=== PATIENT | female | born 1975 | race Caucasian/White ===

== ENCOUNTER 2023-04-07 18:32 | Emergency (ER) | payer OTHER ==
[~2023-04-07] VITALS: Ht 165.1 cm; Wt 108.4 kg
[2023-04-07 18:43] VITALS: BP 117/74
--- NOTE | 2023-04-07 18:47 | NUR ---
pt ambulatory to mariel
--- NOTE | 2023-04-07 19:10 | NUR ---
Patient resting, A/Ox4, chest rise and fall symmetrical, no s/s of distress.
--- NOTE | 2023-04-07 19:29 | NUR ---
Patient discharged with v/s stable. Written and verbal after care instructions given and explained. Patient verbalized understanding. Ambulatory with steady gait. All questions addressed prior to discharge. Advised to follow up with PMD.
[2023-04-07 19:30] VITALS: BP 122/85
== END 2023-04-07 19:34 | disposition home or self-care (01) ==
LOC: MED 18:32
DX: T16.2XXA Foreign body in left ear, initial encounter (principal); H60.93 Unspecified otitis externa, bilateral; X58.XXXA Exposure to other specified factors, initial encounter; Y92.89 Other specified places as the place of occurrence of the external cause; Y93.89 Activity, other specified; Y99.8 Other external cause status
CPT/HCPCS: 69200; 99284

== ENCOUNTER 2023-09-26 12:33 | Emergency (ER) | payer MEDICAID, OTHER ==
[~2023-09-26] VITALS: Ht 152.4 cm; Wt 106.6 kg
[2023-09-26 12:44] VITALS: BP 107/72; PULSE 78; RESP 18; TEMP 98.5; O2SAT 99
[2023-09-26] MEDS ORDERED: PROM118S6 PO (13:12)
[2023-09-26 13:20] VITALS: BP 107/72; PULSE 78; RESP 18; TEMP 98.5; O2SAT 99
[2023-09-26 17:49] LABS: FLU A ANTIGEN negative (NEGATIVE); FLU B ANTIGEN POSITIVE (NEGATIVE)
== END 2023-09-26 13:20 | disposition home or self-care (01) ==
LOC: MED 12:33
DX: J06.9 Acute upper respiratory infection, unspecified (principal); Z20.822 Contact with and (suspected) exposure to COVID-19; Z79.899 Other long term (current) drug therapy
CPT/HCPCS: 99283